=== PATIENT | female | born 1995 | race American Indian/Alaskan Native ===

== ENCOUNTER 2016-10-27 23:16 | Emergency (ER) | payer SELFPAY ==
[2016-10-27 23:36] VITALS: BP 138/85
== END 2016-10-28 05:26 | disposition left against medical advice (07) ==
LOC: ED 23:16
DX: R07.89 Other chest pain (principal); R05 Cough; Z53.21 Procedure and treatment not carried out due to patient leaving prior to being seen by health care provider
CPT/HCPCS: 93005; 93010